=== PATIENT | male | born 1960 | race Caucasian/White ===

== ENCOUNTER 2016-11-06 23:00 | Emergency (ER) | payer SELFPAY ==
[2016-11-07] MEDS ORDERED: Oxymetazoline 0.05% Nasal Spray 15 ML Bottle NAS ONE (00:18)
--- NOTE | 2016-11-07 00:22 | EDM.PDOC ---
ED HPI GENERAL MEDICAL PROBLEM - General Chief Complaint: ENT Problem Stated Complaint: FREQUENT NOSEBLEEDS FOR THE LAST 2 WEEKS Time Seen by Provider: 11/07/16 00:19 Source of Information: Reports: Patient History Limitations: Reports: No Limitations - History of Present Illness INITIAL COMMENTS - FREE TEXT/NARRATIVE: pt has had bleeding on nd off for the past 2 weeks, In the winter they do use wod heat and the house is dry. Onset: Gradual, Other ( the worst nose bleed was today. ) Duration: Day(s): Associated Symptoms: Reports: No Other Symptoms, Other (pt has not had a upper resp. ) Denies Pain Score (Numeric/FACES): 0 - Related Data Allergies Allergy/AdvReac Type Severity Reaction Status Date / Time No Known Allergies Allergy Verified 11/06/16 23:58 Home Meds: Home Meds NK [No Known Home Meds] 11/06/16 [History] Past Medical History HEENT History: Reports: Epistaxis Psychiatric History: Reports: Anxiety - Infectious Disease History Infectious Disease History: Reports: Chicken Pox Social & Family History - Tobacco Use Smoking Status *Q: Never Smoker Second Hand Smoke Exposure: No - Caffeine Use Caffeine Use: Reports: Coffee, Soda, Tea - Recreational Drug Use Recreational Drug Use: No ED ROS ENT - Review of Systems Review Of Systems: See Below Constitutional: Reports: No Symptoms HEENT: Reports: Nosebleed, Other ( Pt has been having nose bleeds . Tonight the bleeding was much worse. ) Respiratory: Reports: No Symptoms Cardiovascular: Reports: No Symptoms Endocrine: Reports: No Symptoms GI/Abdominal: Reports: No Symptoms : Reports: No Symptoms ED EXAM, ENT - Physical Exam Exam: See Below Text/Narrative:: pt has been having nose bleeds on and off for 2 weeks. Exam Limited By: No Limitations General Appearance: Alert, Anxious Ears: Normal TMs Nose: Other (pt has evidence of nasal irritation. ) Mouth/Throat: Normal Inspection Head: Atraumatic Neck: Normal Inspection Respiratory/Chest: No Respiratory Distress Cardiovascular: Regular Rate, Rhythm Course - Vital Signs Last Recorded V/S: Last Vital Signs Temp 36.1 C 11/06/16 23:57 Pulse 65 11/06/16 23:57 Resp 16 11/06/16 23:57 BP 163/106 H 11/06/16 23:57 Pulse Ox 97 11/06/16 23:57 - Orders/Labs/Meds Meds: Medications Discontinued Medications Generic Name Dose Route Start Last Admin Trade Name Jen PRN Reason Stop Dose Admin Oxymetazoline HCl 1 ml 11/07/16 00:18 Afrin Original 0.05% Nasal [place] JOAN 11/07/16 00:19 ONETIME ONE - Re-Assessments/Exams Free Text/Narrative Re-Assessment/Exam: 11/07/16 00:24 pt sprayed his nose with afrin to shrink the vessels. Departure - Departure Time of Disposition: 00:25 Disposition: Home, Self-Care 01 Condition: fair Clinical Impression: Irritation of nose, Nasal bleeding - Discharge Information Forms: ED Department Discharge Care Plan Goals: cool mist humidifier at the bedside, use the afrin nasal spray prior to going to bed tonight. Use the afrin spray in each nostril qid for the next 4-5 days.
[2016-11-07 00:38] VITALS: BP 138/94
== END 2016-11-07 00:38 | disposition home or self-care (01) ==
LOC: JP.ED 23:00
DX: R04.0 Epistaxis (principal)
CPT/HCPCS: 99283; A9270

== ENCOUNTER 2016-11-10 01:23 | Emergency (ER) | payer SELFPAY ==
[2016-11-10 01:39] VITALS: BP 155/111
[2016-11-10] MEDS ORDERED: Silver Nitrate Applicator Each TOP ONE (01:57)
[2016-11-10] MEDS ORDERED: Silver Nitrate Applicator Each ONE (02:00)
--- NOTE | 2016-11-10 02:20 | EDM.PDOC ---
ED HPI GENERAL MEDICAL PROBLEM - General Chief Complaint: ENT Problem Stated Complaint: BLOODY NOSE Time Seen by Provider: 11/10/16 02:00 Source of Information: Reports: Patient History Limitations: Reports: No Limitations - History of Present Illness INITIAL COMMENTS - FREE TEXT/NARRATIVE: History of present illness: [56-year-old male presenting with a nosebleed he was a few days ago when was prescribed Afrin spray and then worked until tonight presents with scan with bilateral epistaxis. He's not on aspirin or any blood thinners] Review of systems: As per history of present illness and below otherwise all systems reviewed and negative. Past medical history: As per history of present illness and as reviewed below otherwise noncontributory. Surgical history: As per history of present illness and as reviewed below otherwise noncontributory. Social history: No reported history of drug or alcohol abuse. Family history: As per history of present illness and as reviewed below otherwise noncontributory. Physical exam: HEENT: Examination of his nasal passage after clot clearing from blowing his nose out reveals that kasselboch's complex was prominent on both sides but no active bleeding was present. We placed a nose clip on his nose for about 10 minutes and looked at it again and again there was no active bleeding. Lungs: Clear to auscultation, Heart: S1S2, regular, Diagnostics: [] Therapeutics: [] Impression: [Bilateral epistaxis] Plan: [Were sent him out with a nose clip we've instructed him in how to use it we've talked about humidification and using Vaseline or Vicks rub to keep his septum moist.] Definitive disposition and diagnosis as appropriate pending reevaluation and review of above. - Related Data Allergies Allergy/AdvReac Type Severity Reaction Status Date / Time No Known Allergies Allergy Verified 11/10/16 01:39 Home Meds: Home Meds NK [No Known Home Meds] 11/06/16 [History] Past Medical History HEENT History: Reports: Epistaxis Psychiatric History: Reports: Anxiety - Infectious Disease History Infectious Disease History: Reports: Chicken Pox Social & Family History - Tobacco Use Smoking Status *Q: Never Smoker Second Hand Smoke Exposure: No - Caffeine Use Caffeine Use: Reports: Coffee, Soda, Tea - Recreational Drug Use Recreational Drug Use: No ED ROS ENT - Review of Systems Review Of Systems: ROS reveals no pertinent complaints other than HPI. ED EXAM, ENT - Physical Exam Exam: See Below Course - Vital Signs Last Recorded V/S: Last Vital Signs Temp 36.6 C 11/10/16 01:37 Pulse 92 11/10/16 01:37 Resp 16 11/10/16 01:37 BP 155/111 H 11/10/16 01:37 Pulse Ox 96 11/10/16 01:37 - Orders/Labs/Meds Meds: Medications Discontinued Medications Generic Name Dose Route Start Last Admin Trade Name Jen PRN Reason Stop Dose Admin Silver Nitrate 1 each 11/10/16 01:57 Silver Nitrate TOP 11/10/16 01:58 ONETIME ONE Silver Nitrate Confirm 11/10/16 02:00 Silver Nitrate Administered 11/10/16 02:01 Dose 1 each .ROUTE .STK-MED ONE Departure - Departure Time of Disposition: 02:18 Disposition: Home, Self-Care 01 Condition: good Clinical Impression: Anterior epistaxis - Discharge Information Forms: ED Department Discharge Additional Instructions: As we discussed you can check the amantadine in your home to make sure that it is about 40% and humidify the air and as needed. Use Vaseline or index vapor rub in your nose to keep the septum moist and hopefully this will solve your problem. I would discontinue using Afrin spray. If the nosebleed starts again clear and he clots and then put the nose clip on for at least 10 minutes while you're sitting up with the head tilted back hopefully this will stop the bleeding. If it does not he'll need to return to the emergency room
== END 2016-11-10 02:27 | disposition home or self-care (01) ==
LOC: JP.ED 01:23
DX: R04.0 Epistaxis (principal)
CPT/HCPCS: 30901; 99282-25; 99283

== ENCOUNTER 2016-11-10 04:02 | Emergency (ER) | payer SELFPAY ==
[2016-11-10 04:21] VITALS: BP 154/54
--- NOTE | 2016-11-10 04:32 | EDM.PDOC ---
ED HPI GENERAL MEDICAL PROBLEM - General Chief Complaint: ENT Problem Stated Complaint: BLOODY NOSE Time Seen by Provider: 11/10/16 04:29 Source of Information: Reports: Patient History Limitations: Reports: No Limitations - History of Present Illness INITIAL COMMENTS - FREE TEXT/NARRATIVE: History of present illness: [This is a 56 show male who is just a few hours ago with epistaxis. We are hoping we can get by with just a nose clamp in instructions on stopping the nosebleed with a clamp but he is in began with a nosebleed. This time is coming out of the right side but when I examined him before he was having trouble on both sides. They were anterior bleeds.] Review of systems: As per history of present illness and below otherwise all systems reviewed and negative. Past medical history: As per history of present illness and as reviewed below otherwise noncontributory. Surgical history: As per history of present illness and as reviewed below otherwise noncontributory. Social history: No reported history of drug or alcohol abuse. Family history: As per history of present illness and as reviewed below otherwise noncontributory. Physical exam: HEENT: We placed 2 rapid rhino rocket's 5.5 cm anterior and successfully controlled the bleeding with this. Lungs: Clear to auscultation, breath sounds equal bilaterally, chest nontender. Heart: S1S2, regular, negative for clicks, rubs, or JVD. Diagnostics: [] Therapeutics: [] Impression: [Epistaxis] Plan: [Followup in the clinic in 3 days for removal] Definitive disposition and diagnosis as appropriate pending reevaluation and review of above. - Related Data Allergies Allergy/AdvReac Type Severity Reaction Status Date / Time No Known Allergies Allergy Verified 11/10/16 01:39 Home Meds: Home Meds NK [No Known Home Meds] 11/06/16 [History] Past Medical History HEENT History: Reports: Epistaxis Psychiatric History: Reports: Anxiety - Infectious Disease History Infectious Disease History: Reports: Chicken Pox Social & Family History - Tobacco Use Smoking Status *Q: Never Smoker Second Hand Smoke Exposure: No - Caffeine Use Caffeine Use: Reports: Coffee, Soda, Tea - Recreational Drug Use Recreational Drug Use: No ED ROS ENT - Review of Systems Review Of Systems: ROS reveals no pertinent complaints other than HPI. ED EXAM, ENT - Physical Exam Exam: See Below Course - Vital Signs Last Recorded V/S: Last Vital Signs Temp 36.8 C 11/10/16 04:13 Pulse 87 11/10/16 04:15 Resp 16 11/10/16 04:15 BP 154/54 H 11/10/16 04:15 Pulse Ox 99 11/10/16 04:15 Departure - Departure Time of Disposition: 04:31 Disposition: Home, Self-Care 01 Condition: good Clinical Impression: Anterior epistaxis - Discharge Information Forms: ED Department Discharge Additional Instructions: You can follow up in the clinic in about 3 days and have them removed and hopefully he will not have recurrence of the bleeding. You can control the pressure with a syringe that we sent home with you as we instructed.
== END 2016-11-10 04:36 | disposition home or self-care (01) ==
LOC: JP.ED 04:02
DX: R04.0 Epistaxis (principal)
CPT/HCPCS: 30903; 99283-25

== ENCOUNTER 2016-11-12 00:53 | Emergency (ER) | payer SELFPAY ==
[2016-11-12 01:23] VITALS: BP 152/89
--- NOTE | 2016-11-12 02:46 | EDM.PDOC ---
[id number] BLEED Time Seen by Provider: 11/12/16 01:30 Source of Information: Reports: Patient History Limitations: Reports: No Limitations - History of Present Illness INITIAL COMMENTS - FREE TEXT/NARRATIVE: 56-year-old male who has been having some recurring epistaxis over the past several days arrives with a rapid rhino placed in each nares. He feels the bleeding is continuing in the right side because of the pressure, he thinks there are clots behind the packing. Associated Symptoms: Reports: No Other Symptoms Nose Pain Score (Numeric/FACES): 4 - Related Data Allergies Allergy/AdvReac Type Severity Reaction Status Date / Time No Known Allergies Allergy Verified 11/10/16 01:39 Home Meds: Home Meds NK [No Known Home Meds] 11/06/16 [History] Past Medical History HEENT History: Reports: Epistaxis Psychiatric History: Reports: Anxiety - Infectious Disease History Infectious Disease History: Reports: Chicken Pox Social & Family History - Tobacco Use Smoking Status *Q: Never Smoker Second Hand Smoke Exposure: No - Caffeine Use Caffeine Use: Reports: Coffee, Soda, Tea - Recreational Drug Use Recreational Drug Use: No ED ROS ENT - Review of Systems Review Of Systems: See Below Constitutional: Denies: Fever, Chills Respiratory: Denies: Shortness of Breath GI/Abdominal: Denies: Nausea, Vomiting Skin: Reports: No Symptoms Neurological: Reports: No Symptoms. Denies: Headache Psychiatric: Reports: No Symptoms ED EXAM, ENT - Physical Exam Exam: See Below Exam Limited By: No Limitations General Appearance: Alert, No Apparent Distress Nose: Other (Rapid rhino packing in each nares) Respiratory/Chest: No Respiratory Distress Neurological: Alert, Oriented Psychiatric: Anxious Skin: Warm, Dry Course - Vital Signs Last Recorded V/S: Last Vital Signs Temp 99.1 F 11/12/16 01:20 Pulse 85 11/12/16 01:20 Resp 16 11/12/16 01:20 BP 152/89 H 11/12/16 01:20 Pulse Ox 96 11/12/16 01:20 - Re-Assessments/Exams Free Text/Narrative Re-Assessment/Exam: 11/12/16 02:44 Patient was observed for over one hour and had no additional bleeding. He was reassured, told not to use nasal sprays and return if bleeding recurs and he cannot get it stopped. Departure - Departure Time of Disposition: 02:56 Disposition: Home, Self-Care 01 Condition: good Clinical Impression: Epistaxis, recurrent - Discharge Information Instructions: Nosebleed, [id number] Referrals: PCP,None [Primary Care Provider] - Forms: ED Department Discharge Care Plan Goals: Do not use sprays in your nose, avoid any trauma and use external pressure if bleeding recurs. Return if you cannot get the bleeding stopped.
== END 2016-11-12 02:55 | disposition home or self-care (01) ==
LOC: JP.ED 00:53
DX: R04.0 Epistaxis (principal)
CPT/HCPCS: 99282; 99283

== ENCOUNTER 2016-11-14 21:26 | Emergency (ER) | payer SELFPAY ==
[2016-11-14] MEDS ORDERED: Oxymetazoline 0.05% Nasal Spray 15 ML Bottle NAS ONE (23:09)
--- NOTE | 2016-11-14 23:20 | EDM.PDOC ---
ED HPI GENERAL MEDICAL PROBLEM - General Chief Complaint: ENT Problem Stated Complaint: nose bleed Time Seen by Provider: 11/14/16 22:50 History Limitations: Reports: No Limitations - History of Present Illness INITIAL COMMENTS - FREE TEXT/NARRATIVE: Patient reports multiple visits for nose bleeds. He recently had rhino rocket removed on 11/12/16. He developed right nare bleeding at 2100 tonight. He applied pressure with no success and returns to the ER. Onset: Today Onset Date: 11/14/16 Onset Time: 21:00 Duration: Hour(s): - Related Data Allergies Allergy/AdvReac Type Severity Reaction Status Date / Time No Known Allergies Allergy Verified 11/14/16 22:32 Home Meds: Home Meds NK [No Known Home Meds] 11/06/16 [History] Past Medical History HEENT History: Reports: Epistaxis Psychiatric History: Reports: Anxiety - Infectious Disease History Infectious Disease History: Reports: Chicken Pox Social & Family History - Family History Family Medical History: Noncontributory - Tobacco Use Smoking Status *Q: Current Status Unknown Second Hand Smoke Exposure: No - Caffeine Use Caffeine Use: Reports: Soda - Recreational Drug Use Recreational Drug Use: No ED ROS ENT - Review of Systems Review Of Systems: See Below Constitutional: Denies: Fever, Chills HEENT: Reports: Nosebleed. Denies: Ear Discharge, Ear Pain, Eye Pain, Nose Pain , Rhinitis, Sinus Problem, Throat Pain, Throat Swelling Respiratory: Denies: Shortness of Breath, Wheezing, Cough, Sputum Cardiovascular: Reports: No Symptoms Endocrine: Reports: No Symptoms : Reports: No Symptoms Musculoskeletal: Reports: No Symptoms Skin: Reports: No Symptoms Neurological: Reports: No Symptoms Hematologic/Lymphatic: Reports: No Symptoms Immunologic: Reports: No Symptoms ED EXAM, ENT - Physical Exam Exam: See Below Exam Limited By: No Limitations General Appearance: Alert, WD/WN, No Apparent Distress Eye Exam: Bilateral Eye: Normal Inspection, PERRL Ears: Normal External Exam, Normal Canal, Hearing Grossly Normal, Normal TMs Nose: Active Bleeding, Other (Difficult to determine location of bleeding. ). No: Nasal Deformity, Nasal Swelling, Nasal Ecchymosis, Foreign Body, Septal Deformity, Septal Hematoma, Septal Performation, Injected Turbinates Mouth/Throat: Normal Inspection, Normal Gums, Normal Lips, Normal Oropharynx Head: Atraumatic, Normocephalic Neck: Normal Inspection, Supple, Non-Tender, Full Range of Motion Respiratory/Chest: No Respiratory Distress, Lungs Clear, Normal Breath Sounds, No Accessory Muscle Use, Chest Non-Tender Cardiovascular: Normal Peripheral Pulses, Regular Rate, Rhythm, No Edema, No Murmur, No Rub Neurological: Alert, Oriented, CN II-XII Intact, Normal Cognition, No Motor/ Sensory Deficits Psychiatric: Normal Affect, Normal Mood Skin: Warm, Dry, Normal Color, No Rash ED ENT PROCEDURES - Epistaxis Procedure Indication: epistaxis Recent anticoagulants/antiplatlets: No Recent septal/nasal surgery: No Site of bleeding: right nare, left nare Clearing of clots: patient blew nose Topical Meds: phenylephrine, other (soaked cotton balls to each nare for 10 minutes, patient tolerated well. ) Ice pack to area: No Course - Vital Signs Last Recorded V/S: Last Vital Signs Temp 36.8 C 11/14/16 22:29 Pulse 61 11/14/16 23:55 Resp 19 11/14/16 23:55 BP 150/102 H 11/14/16 23:55 Pulse Ox 96 11/14/16 22:29 - Orders/Labs/Meds Meds: Medications Discontinued Medications Generic Name Dose Route Start Last Admin Trade Name Freq PRN Reason Stop Dose Admin Oxymetazoline HCl 3 ml 11/14/16 23:09 11/14/16 23:56 Afrin Original 0.05% Nasal [place] JOAN 11/14/16 23:10 3 ml ONETIME ONE Administration Oxymetazoline nasal spray to soak cotton balls and pack each nare with pressure for 10 minutes. Patient tolerated well. Cotton balls removed, no active bleeding at time of removal. Will recheck blood pressure. - Re-Assessments/Exams Free Text/Narrative Re-Assessment/Exam: 11/15/16 00:09 No bleeding at this time. Right nare blood clot removed, no bleeding noted. Attempt to place rhino rocket to right nare, patient reports too much pain with rocket. He will try to go home without the packing. 11/15/16 00:15 Free Text/Narrative Re-Assessment/Exam: 11/15/16 00:12 Review of patient blood pressure reveals baseline of 150/50-100. Advised to seek care and monitoring for hypertension. 11/15/16 00:15 Departure - Departure Time of Disposition: 00:10 Disposition: Home, Self-Care 01 Condition: fair Clinical Impression: Recurrent epistaxis, Anterior epistaxis - Discharge Information Referrals: PCP,None [Primary Care Provider] - Forms: ED Department Discharge Additional Instructions: Recurrent nose bleed Do not irritate nose in any way. Do not blow, snort, pick, scratch or inflict any trauma to the nose. Keep you home humid with use of humidifier. You may use afrin nasal spray as directed for 3 days. Make an appointment with a primary care provider for hypertension and recurrent nose bleeds with referral to ENT. Return for worsening. - Assessment/Plan Assessment:: Recurrent epistaxis Plan: Use afrin nasal spray once daily to each nare as directed. Keep home environment humid. Do not irritate, scratch, pick, injury, snort, cough or blow nose. Follow up with primary care for hypertension, recurrent nose bleed and ENT referral. Return to ER for worsening.
[2016-11-15 00:03] VITALS: BP 150/102
== END 2016-11-15 00:25 | disposition home or self-care (01) ==
LOC: JP.ED 21:26
DX: R04.0 Epistaxis (principal)
CPT/HCPCS: 30901; 99282; 99283; A9270

== ENCOUNTER 2018-07-07 15:02 | Emergency (ER) | payer OTHER ==
[2018-07-07 15:16] VITALS: BP 159/99
--- NOTE | 2018-07-07 16:21 | EDM.PDOC ---
ED HPI GENERAL MEDICAL PROBLEM - General Chief Complaint: Gastrointestinal Problem Stated Complaint: DIARRHEA Time Seen by Provider: 07/07/18 16:00 Source of Information: Reports: Patient History Limitations: Reports: No Limitations - History of Present Illness INITIAL COMMENTS - FREE TEXT/NARRATIVE: This gentleman recently took some clindamycin for tooth infection. After he had been on the medication for about a week he began to develop some diarrhea. He says his safety fairly mild. And it sort of an off-and-on thing safety been going on for a couple of weeks now. Never had any cramps has never seen any blood. At one time he did eat some Activa yogurt. - Related Data Allergies Allergy/AdvReac Type Severity Reaction Status Date / Time No Known Allergies Allergy Verified 11/14/16 22:32 Home Meds: Home Meds NK [No Known Home Meds] 11/06/16 [History] Past Medical History HEENT History: Reports: Epistaxis Psychiatric History: Reports: Anxiety - Infectious Disease History Infectious Disease History: Reports: Chicken Pox Social & Family History - Family History Family Medical History: Noncontributory - Tobacco Use Smoking Status *Q: Never Smoker Second Hand Smoke Exposure: No - Caffeine Use Caffeine Use: Reports: Coffee Other Caffeine Use: 1 cup coffee - Recreational Drug Use Recreational Drug Use: No ED ROS GENERAL - Review of Systems Review Of Systems: ROS reveals no pertinent complaints other than HPI. ED EXAM, GI/ABD - Physical Exam Exam: See Below Exam Limited By: No Limitations General Appearance: Alert, WD/WN, No Apparent Distress Eyes: Bilateral: Normal Appearance Respiratory/Chest: Lungs Clear Cardiovascular: Regular Rate, Rhythm, No Murmur GI/Abdominal Exam: Normal Bowel Sounds, Soft, Non-Tender Course - Vital Signs Last Recorded V/S: Last Vital Signs Temp 36.1 C 07/07/18 15:18 Pulse 82 07/07/18 15:18 Resp 16 07/07/18 15:18 BP 159/99 H 07/07/18 15:18 Pulse Ox 98 07/07/18 15:18 Departure - Departure Time of Disposition: 16:17 Disposition: Home, Self-Care 01 Condition: Fair Clinical Impression: Diarrhea - Discharge Information Referrals: PCP,None [Primary Care Provider] - Additional Instructions: Your symptoms appear to be what many people experience after using an antibiotic. You may improve by using one of the probiotics such as Activa yogurt that tends to replenish your bowels with bacteria that will stop the diarrhea. Any kind of yogurt with active cultures will do the same thing. If this doesn't seem to help then you can try Imodium. If at any time you seemed like you're getting worse than return to the ER or see your doctor. There is a condition called pseudomembranous colitis caused by a bacteria called Clostridium epiphyseal and you can get this after taking antibiotics particularly clindamycin. Your symptoms don't appear to be bad enough to have that condition. But if you're getting worse or just not better then your doctor will probably test you for that
== END 2018-07-07 16:30 | disposition home or self-care (01) ==
LOC: JP.ED 15:02
DX: R19.7 Diarrhea, unspecified (principal)
CPT/HCPCS: 99284

== ENCOUNTER 2020-06-21 05:32 | Emergency (ER) | payer OTHER ==
[2020-06-21 06:08] VITALS: BP 170/99; PULSE 68
--- NOTE | 2020-06-21 06:23 | EDM.PDOC ---
<Rosa Lawson - Last Filed: 06/21/20 06:49> ED HPI GENERAL MEDICAL PROBLEM - General Chief Complaint: Respiratory Problem Stated Complaint: S.O.B. Time Seen by Provider: 06/21/20 06:11 Source of Information: Reports: Patient History Limitations: Reports: No Limitations - History of Present Illness INITIAL COMMENTS - FREE TEXT/NARRATIVE: pt has the sensation that he is not able to take a deep breath or fill his lungs. This sensation comes and goes. He has no history of lung disease. Onset: Gradual Duration: Day(s): Location: Reports: Chest Associated Symptoms: Reports: Shortness of Breath, Other (pt feels like h is not able to fill his lungs. ) denies pain Pain Score (Numeric/FACES): 0 - Related Data Allergies Allergy/AdvReac Type Severity Reaction Status Date / Time No Known Allergies Allergy Verified 06/21/20 06:03 Home Meds: Home Meds NK [No Known Home Meds] 06/21/20 [History] Past Medical History HEENT History: Reports: Epistaxis Psychiatric History: Reports: Anxiety - Infectious Disease History Infectious Disease History: Reports: Chicken Pox Social & Family History - Family History Family Medical History: No Pertinent Family History - Caffeine Use Caffeine Use: Reports: Coffee Other Caffeine Use: 1 cup coffee ED ROS GENERAL - Review of Systems Review Of Systems: See Below Constitutional: Reports: Other (opt did have some upper resp symptoms and a few days ago he did loose his taste. ) HEENT: Reports: Sinus Problem, Other (pt did loose his taste. ) Respiratory: Reports: Shortness of Breath, Other (pt fels like he is not able to fill his lungs. ) Cardiovascular: Reports: No Symptoms Endocrine: Reports: No Symptoms GI/Abdominal: Reports: No Symptoms : Reports: No Symptoms Musculoskeletal: Reports: No Symptoms Skin: Reports: No Symptoms Neurological: Reports: No Symptoms Psychiatric: Reports: Anxiety ED EXAM, GENERAL - Physical Exam Exam: See Below Free Text/Narrative:: pt feels like he has not been able to fill his lungs. He also has not been able to taste for the past 4-5 days. Exam Limited By: No Limitations General Appearance: Alert, No Apparent Distress, Anxious, Other (pt does have elevated bp. ) Ears: Normal TMs Nose: Normal Inspection Throat/Mouth: Normal Inspection Head: Atraumatic Neck: Normal Inspection Respiratory/Chest: No Respiratory Distress, Other (pt has good oxgenation) Cardiovascular: Regular Rate, Rhythm GI/Abdominal: Soft, Non-Tender (Male) Exam: Deferred Rectal (Males) Exam: Deferred Back Exam: Normal Inspection Extremities: Normal Inspection Neurological: Alert, Oriented, Normal Cognition Psychiatric: Anxious Departure - Departure Disposition: Home, Self-Care 01 Clinical Impression: COVID-19 - Discharge Information Instructions: COVID-19, COVID-19: How to Protect Yourself and Others - [facility] Referrals: Jefferson Hernandez Sr, MD [Primary Care Provider] - Forms: ED Department Discharge Additional Instructions: Try the Combivent inhaler for symptomatic relief of shortness of breath, please followup with your primary care provider in 3-5 days if not better, please call return to the emergency department with worsening of symptoms. Sepsis Event Note (ED) - Evaluation Sepsis Screening Result: No Definite Risk <OfficerGanesh - Last Filed: 06/21/20 08:16> Course - Vital Signs Last Recorded V/S: Last Vital Signs Temp 98.8 F 06/21/20 06:08 Pulse 68 06/21/20 06:08 Resp 15 06/21/20 06:08 BP 170/99 H 06/21/20 06:08 Pulse Ox 99 06/21/20 06:08 - Orders/Labs/Meds Orders: Active Orders 24 hr Category Date Time Status RT Post Treatment Assessment [RC] Click to Edit Care 06/21/20 08:14 Active Chest 1V Frontal [CR] Stat Exams 06/21/20 06:21 Taken Albuterol/Ipratropium [Combivent Respimat] Med 06/21/20 08:14 Ordered 1 gm INH Q4H PRN Labs: Laboratory Tests 06/21/20 06/21/20 Range/Units 06:44 06:51 WBC 6.3 (4.5-11.0) K/uL RBC 5.00 (4.30-5.90) M/uL Hgb 14.5 (12.0-15.0) g/dL Hct 43.3 (40.0-54.0) % MCV 87 (80-98) fL MCH 29 (27-31) pg MCHC 34 (32-36) % Plt Count 325 (150-400) K/uL Neut % (Auto) 73 H (36-66) % Lymph % (Auto) 19 L (24-44) % [place] % (Auto) 7 H (2-6) % Eos % (Auto) 1 L (2-4) % Baso % (Auto) 1 (0-1) % SARS-CoV-2 RNA (ARMANDO) Positive H (NEGATIVE) Departure - Departure Time of Disposition: 08:15 Condition: Fair Sepsis Event Note (ED) - Focused Exam Vital Signs: Vital Signs Temp Pulse Resp BP Pulse Ox 06/21/20 06:08 98.8 F 68 15 170/99 H 99 06/21/20 06:04 98.8 F 68 15 170/99 H 99 - My Orders Last 24 Hours: My Active Orders 06/21/20 08:14 RT Post Treatment Assessment [RC] Click to Edit Albuterol/Ipratropium [Combivent Respimat] 1 gm INH Q4H PRN - Assessment/Plan Last 24 Hours: My Active Orders 06/21/20 08:14 RT Post Treatment Assessment [RC] Click to Edit Albuterol/Ipratropium [Combivent Respimat] 1 gm INH Q4H PRN Plan: Took over care from Dr. Lawson at 7 AM pending Covid results Assessment Acuity = acute Site and laterality = viral syndrome Etiology = COVID-19 Manifestations = dyspnea Location of injury = Home Lab values = CBC unremarkable chest x-ray I did review films myself I cannot appreciate any acute process, the official read from radiology is pending, COVID-19 is positive Plan He did not qualify for monoclonal antibody therapy, his only symptom is dyspnea we will try Combivent inhaler for symptomatic relief he will do self quarantine at home This note was dictated using [employer] recognition software please call with any questions on syntax or grammar.
[2020-06-21] MEDS ORDERED: Albuterol/Ipratropium 4 GM Inhalation Spray INH PRN (08:14)
--- NOTE | 2020-06-22 09:48 | CR ---
CHEST: Portable CLINICAL HISTORY:SOB COMPARISON:None FINDINGS: The heart size, pulmonary vascularity and hilar structures are normal. No infiltrate effusion or pneumothorax is seen. IMPRESSION: No acute cardiopulmonary process.
== END 2020-06-21 08:31 | disposition home or self-care (01) ==
LOC: JP.ED 05:32
DX: U07.1 COVID-19 (principal)
CPT/HCPCS: 36415; 71045; 85025; 87635; 94640; 99283; 99285; A9270; U0002

== ENCOUNTER 2020-12-23 08:20 | Emergency (ER) | payer OTHER ==
[2020-12-23 08:58] VITALS: BP 172/101; PULSE 77
--- NOTE | 2020-12-23 09:08 | EDM.PDOC ---
ED HPI GENERAL MEDICAL PROBLEM - General Chief Complaint: Upper Extremity Injury/Pain Stated Complaint: RIGHT WRIST ISSUE Time Seen by Provider: 12/23/20 09:00 Source of Information: Reports: Patient, RN Notes Reviewed History Limitations: Reports: No Limitations - History of Present Illness INITIAL COMMENTS - FREE TEXT/NARRATIVE: 60-year-old gentleman presents emergency department today complaint of right wrist pain, he states that the pain is really developed over the last 24 hours he does admit he does a lot of lifting at work a lot of repetitive motion at work. This may have contributed to the problem he is not taking anything for the pain he does have some swelling on the medial l aspect of the wrist Right Wrist Pain Score (Numeric/FACES): 4 - Related Data Allergies Allergy/AdvReac Type Severity Reaction Status Date / Time No Known Allergies Allergy Verified 12/23/20 09:17 Home Meds: Home Meds hydrOXYzine HCL [Hydroxyzine HCl] 25 mg PO DAILY 12/23/20 [History] Past Medical History HEENT History: Reports: Epistaxis Psychiatric History: Reports: Anxiety - Infectious Disease History Infectious Disease History: Reports: Chicken Pox Social & Family History - Family History Family Medical History: No Pertinent Family History - Caffeine Use Caffeine Use: Reports: Coffee Other Caffeine Use: 1 cup coffee Review of Systems - Review of Systems Review Of Systems: See Below Constitutional: Reports: No Symptoms Musculoskeletal: Reports: Joint Pain ED EXAM, GENERAL - Physical Exam Exam: See Below Free Text/Narrative:: Examination of the wrist I do appreciate some edema around the ulnar area of the wrist limited range of motion on flexion extension he can move all his digits however he states it does cause pain there is tenderness to palpation over the ulnar area radial pulses +2 Course - Vital Signs Last Recorded V/S: Last Vital Signs Temp 97.6 F 12/23/20 09:16 Pulse 77 12/23/20 09:16 Resp 16 12/23/20 09:16 BP 172/101 H 12/23/20 09:16 Pulse Ox 97 12/23/20 09:16 Departure - Departure Time of Disposition: 10:20 Disposition: Home, Self-Care 01 Condition: Fair Clinical Impression: Repetitive motion injury, Acute pain of right wrist - Discharge Information Instructions: Repetitive Strain Injuries, Wrist Pain, Adult, [id number] Referrals: Jefferson Hernandez Sr, MD [Primary Care Provider] - Forms: ED Department Discharge Additional Instructions: Try Tylenol or ibuprofen as needed for pain control, try a wrist splint at work to help reduce the repetitive motion you do, please followup with your primary care provider in 3-5 days if not better, please call return to the emergency department with worsening of symptoms. Sepsis Event Note (ED) - Focused Exam Vital Signs: Vital Signs Temp Pulse Resp BP Pulse Ox 12/23/20 09:16 97.6 F 77 16 172/101 H 97 12/23/20 08:57 97.6 F 77 16 172/101 H 97 - Assessment/Plan Plan: Assessment Acuity = acute Site and laterality = repetitive motion injury right wrist Etiology = repetitive motion Manifestations = none Location of injury = work Lab values = x-ray reveals no fracture Plan He is going to use a wrist splint at work use anti-inflammatories and trying to find alternative means for doing his job follow-up primary care 3 to 5 days if not better This note was dictated using [employer] voice recognition software please call with any questions on syntax or grammar.
--- NOTE | 2020-12-23 09:54 | CR ---
Wrist Comp Min 3V Rt CLINICAL HISTORY: Pain FINDINGS: There is no acute fracture or dislocation within the right wrist. There is a bone island in the distal radius. There is some convexity along the lateral aspect of the radial metaphysis. This could be from old injury Impression: No acute fracture or dislocation
== END 2020-12-23 10:29 | disposition home or self-care (01) ==
LOC: JP.ED 08:20
DX: S69.91XA Unspecified injury of right wrist, hand and finger(s), initial encounter (principal); X50.0XXA Overexertion from strenuous movement or load, initial encounter; Y92.89 Other specified places as the place of occurrence of the external cause; Y99.0 Civilian activity done for income or pay
CPT/HCPCS: 73110-26-RT; 73110-RT; 99283-25